=== PATIENT | female | born 1970 | race Two or more races ===

== ENCOUNTER 2021-05-17 12:12 | Emergency (ER) | payer OTHER ==
[~2021-05-17] VITALS: Ht 162.6 cm; Wt 59.0 kg
== END 2021-05-17 13:19 | disposition home or self-care (01) ==
LOC: ER 12:12
DX: S90.32XA Contusion of left foot, initial encounter (principal); X58.XXXA Exposure to other specified factors, initial encounter; Y93.9 Activity, unspecified; Y92.218 Other school as the place of occurrence of the external cause; Y99.9 Unspecified external cause status; M77.52 Other enthesopathy of left foot and ankle; Z88.8 Allergy status to other drugs, medicaments and biological substances